=== PATIENT | male | born 2000 | race Two or more races ===

== ENCOUNTER → 2024-05-10 | Outpatient (CLI) | payer OTHER, SELFPAY ==
--- NOTE | 2024-05-10 13:24 | XR_ITS ---
EXAMINATION: Cervical spine, 5 views Technique: Cervical spine AP, AP odontoid, lateral, bilateral obliques, 5 views Exam date and time: May 10, 2024 1337 hours INDICATIONS: Neck pain months. FINDINGS: Adequate alignment cervical These Mild disc narrowing C3-C4 No cervical fracture Intact odontoid No significant neural foraminal stenosis IMPRESSION: No fracture or significant arthritic change
--- NOTE | 2024-05-10 13:24 | XR_ITS ---
Examination: Lumbar spine, 5 views Technique: Lumbar spine AP, lateral, coned lateral lower lumbar spine, bilateral obliques 5 views Exam date and time: May 10, 2024 1337 hours INDICATIONS: Low back pain months. FINDINGS: Spina bifida S1 Adequate alignment lumbar vertebral bodies No lumbar fracture Transitional S1 vertebral body IMPRESSION: No lumbar fracture or arthritic change
== END | disposition home or self-care (01) ==
PROVIDERS: Referring Provider Family Medicine; Visit Provider Family Medicine
DX: S13.4XXA Sprain of ligaments of cervical spine, initial encounter (principal); S33.5XXA Sprain of ligaments of lumbar spine, initial encounter; X58.XXXA Exposure to other specified factors, initial encounter
CPT/HCPCS: 72050; 72110